=== PATIENT | male | born 1990 | race Caucasian/White ===

== ENCOUNTER 2024-01-14 18:00 | Emergency (ER) | payer BC | END 2024-01-14 18:52 | disposition left against medical advice (07) | LOC: ER 18:05 | DX: Z53.21 Procedure and treatment not carried out due to patient leaving prior to being seen by health care provider (principal) ==

== ENCOUNTER → 2024-01-14 | Emergency (ER) | payer BC ==
[~2024-01-14] VITALS: Ht 182.9 cm; Wt 86.2 kg
[~2024-01-14] MED LIST: IBUP-1957 PO
[2024-01-14 09:07] VITALS: TEMP 98.5
[2024-01-14 09:28] LABS: APPEARANCE,URINE CLEAR (CLEAR); BILIRUBIN,URINE NEGATIVE (NEGATIVE); BLOOD, URINE NEGATIVE Ery/uL (NEGATIVE); COLOR,URINE YELLOW (YELLOW); KETONES,URINE NEGATIVE (NEGATIVE); LEUKOCYTE ESTERASE ,URINE NEGATIVE (NEGATIVE); NITRITE, URINE NEGATIVE (NEGATIVE); PH,URINE 7.5 (5.0-8.0); PROTEIN,URINE NEGATIVE (NEGATIVE); UGLUCOSE NEGATIVE (NEGATIVE); UROBILINOGEN,URINE 0.2 EU/dL (0.2)
[2024-01-14 09:56] VITALS: BP 124/80; O2SAT 99
== END | disposition home or self-care (01) ==
LOC: ER 08:58
DX: R10.32 Left lower quadrant pain (principal); R05.9 Cough, unspecified; F17.200 Nicotine dependence, unspecified, uncomplicated
CPT/HCPCS: 71045-TC